=== PATIENT | male | born 1960 | race Caucasian/White ===

== ENCOUNTER 2016-12-24 09:34 | Inpatient (IN) | payer OTHER ==
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
[2016-12-24 09:51] LABS: % IMMATURE GRANULYOCYTES 1.4 % (0.0-1.1); ABSOLUTE IMMATURE GRANULOCYTES 0.17 10^3/uL (0.00-0.10); ADD DIFF? NO; ADD MORPH? NO; ADD SCAN? NO; ATYPICAL LYMPHOCYTE FLAG 0 (0-99); FRAGMENT RBC FLAG 0 (0-99); HEMATOCRIT 55.5 % (40.0-51.0); HEMOGLOBIN 18.8 g/dL (13.7-17.5); LEFT SHIFT FLG 10 (0-99); LIPEMIA HEMOLYSIS FLAG 90 (0-99); MEAN CELL HEMOGLOBIN 28.9 pg (27.9-34.1); MEAN CELL HEMOGLOBIN CONCENTR. 33.9 g/dL (32.4-36.7); MEAN CELL VOLUME 85.3 fL (81.5-99.8); MEAN PLATELET VOLUME 10.5 fL (8.7-11.7); PLATELET CLUMPS FLAG 0 (0-99); PLATELET COUNT 217 10^3/uL (150-400); RED BLOOD CELL COUNT 6.51 10^6/uL (4.40-6.38); RED CELL DISTRIBUTION WIDTH 15.9 % (11.5-15.2)
[2016-12-24 10:06] LABS: ANION GAP 17 mEq/L (8-16); CALCIUM 9.1 mg/dL (8.5-10.4); CARBON DIOXIDE 25 mEq/l (22-31); CHLORIDE 100 mEq/L (97-110); GLOMERULAR FILTRATION RATE > 60; GLUCOSE 130 mg/dL (70-100); SODIUM 142 mEq/L (134-144)
[2016-12-24] MEDS ORDERED: fentaNYL 100 MCG/2 ML INJ ONE (10:10)
[2016-12-24] MEDS ORDERED: fentaNYL 100 MCG/2 ML INJ IVP ONE ×2 (10:16→10:55)
[2016-12-24] MEDS ORDERED: MIDAZOLAM 2 MG/2 ML VIAL ONE (10:37)
[2016-12-24] MEDS ORDERED: MIDAZOLAM 2 MG/2 ML VIAL IVP ONE (10:55)
[2016-12-24] MEDS ORDERED: HYDROmorphONE/DILAUDID 1 MG/ML SYR IVP ONE (11:05)
[2016-12-24] MEDS ORDERED: HYDROmorphONE/DILAUDID 1 MG/ML SYR ONE (11:05)
[2016-12-24] MEDS ORDERED: LORazepam 2 MG/ML INJ IVP ONE (11:25)
[2016-12-24] MEDS ORDERED: LORazepam 2 MG/ML INJ ONE (11:27)
--- NOTE | 2016-12-24 11:51 | CPEKG ---
Heart Rate: 86 RR Interval: 698 P-R Interval: 176 QRSD Interval: 104 QT Interval: 388 QTC Interval: 464 P Pierpont: 69 QRS Pierpont: -77 T Wave Pierpont: 78 EKG Severity - ABNORMAL ECG - EKG Impression: SINUS RHYTHM EKG Impression: LEFT ANTERIOR FASCICULAR BLOCK Electronically Signed By: Symone Reese 24-Dec-2016 12:05:32
[2016-12-24] MEDS ORDERED: NALOXONE HCL 0.4 MG/ML INJ IVP PRN (12:36)
[2016-12-24] MEDS ORDERED: KETOROLAC 15 MG/1 ML SDV IVP PRN (12:38)
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
[2016-12-24] MEDS ORDERED: OXYCODONE/APAP 5/325 TAB PO PRN (12:42)
[2016-12-24] MEDS ORDERED: ONDANSETRON 4 MG/2 ML VIAL IVP PRN (12:42)
[2016-12-24] MEDS ORDERED: KETOROLAC 30 MG/1 ML SDV IVP ONE (12:45)
[2016-12-24] MEDS: HYDROmorphONE/DILAUDID 6 MG/30 ML PCA IV PRN (13:05)
[2016-12-24] MEDS ORDERED: PROTOCOL POTASSIUM 1 DOSE MISC PRN (14:24)
[2016-12-24] MEDS ORDERED: POTASSIUM CL 10 MEQ TAB PO ONE (15:27)
[2016-12-24 18:12] LABS: COLOR YELLOW; LEUKOCYTE ESTERASE,URINE NEGATIVE (NEGATIVE); NITRITE,URINE NEGATIVE (NEGATIVE)
[2016-12-24] MEDS: KETOROLAC 15 MG/1 ML SDV IVP SCH (18:25)
[2016-12-24 18:31] LABS: POTASSIUM 4.6 mEq/L (3.5-5.2)
[2016-12-24 18:35] LABS: MUCUS TRACE /lpf (NONE-1+)
[2016-12-24] MEDS: D5W 1/2 NS W/ 20 KCl/L 1,000 ML IV SCH (23:16)
[2016-12-25] MEDS: KETOROLAC 15 MG/1 ML SDV IVP SCH ×5 (00:18→23:06)
[2016-12-25 05:02] LABS: % IMMATURE GRANULYOCYTES 0.4 % (0.0-1.1); ABSOLUTE IMMATURE GRANULOCYTES 0.04 10^3/uL (0.00-0.10); ADD DIFF? NO; ADD MORPH? NO; ADD SCAN? NO; ATYPICAL LYMPHOCYTE FLAG 0 (0-99); FRAGMENT RBC FLAG 0 (0-99); HEMATOCRIT 47.5 % (40.0-51.0); LEFT SHIFT FLG 0 (0-99); LIPEMIA HEMOLYSIS FLAG 80 (0-99); MEAN CELL HEMOGLOBIN 29.3 pg (27.9-34.1); MEAN CELL HEMOGLOBIN CONCENTR. 33.7 g/dL (32.4-36.7); MEAN CELL VOLUME 86.8 fL (81.5-99.8); MEAN PLATELET VOLUME 10.3 fL (8.7-11.7); PLATELET CLUMPS FLAG 0 (0-99); PLATELET COUNT 151 10^3/uL (150-400); RED BLOOD CELL COUNT 5.47 10^6/uL (4.40-6.38); RED CELL DISTRIBUTION WIDTH 15.5 % (11.5-15.2)
[2016-12-25 05:20] LABS: ALANINE AMINOTRANSFERASE 59 IU/L (21-72); ALBUMIN 3.5 g/dL (3.5-5.0); ALKALINE PHOSPHATASE 77 IU/L (38-126); AMYLASE 57 IU/L (30-110); ANION GAP 9 mEq/L (8-16); ASPARTATE AMINOTRANSFERASE 136 IU/L (17-59); BILIRUBIN,TOTAL 1.7 mg/dL (0.1-1.4); BILIRUBIN-CONJUGATED 0.4 mg/dL (0.0-0.5); BILIRUBIN-UNCONJUGATED 1.3 mg/dL (0.0-1.1); CALCIUM 8.1 mg/dL (8.5-10.4); CARBON DIOXIDE 24 mEq/l (22-31); CHLORIDE 107 mEq/L (97-110); CREATININE 0.8 mg/dL (0.7-1.3); GLOMERULAR FILTRATION RATE > 60; GLUCOSE 114 mg/dL (70-100); POTASSIUM 4.4 mEq/L (3.5-5.2); SODIUM 140 mEq/L (134-144)
--- NOTE | 2016-12-25 06:03 | SOAPPROG ---
DASHAWN Progress Note Assessment/Plan: Assessment: Scapular body fracture Asked to see pt. by Dr. Viera Fracture likely operative but need scapula specific CT recon. Surgery next week pending improvement of other injuries Plan: 12/25/16 06:02 Objective: Vital Signs Temp Pulse Resp BP Pulse Ox 36.7 C 88 8 L 126/84 H 96 12/25/16 04:00 12/25/16 05:00 12/25/16 05:00 12/25/16 05:00 12/25/16 05:00 Laboratory Results 12/25/16 04:45 12/25/16 04:45 12/24/16 12/25/16 12/26/16 05:59 05:59 05:59 Intake Total 2600 Output Total 710 Balance 1890 ICD10 Worksheet Patient Problems: Problems Problem Status Onset Bilateral pneumothorax Acute Multiple rib fractures Acute Scapular fracture Acute
[2016-12-25] MEDS: HYDROmorphONE/DILAUDID 6 MG/30 ML PCA IV PRN ×3 (06:35→22:09)
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
[2016-12-25] MEDS: D5W 1/2 NS W/ 20 KCl/L 1,000 ML IV SCH (16:37)
[2016-12-25 17:52] LABS: POTASSIUM 4.9 mEq/L (3.5-5.2)
--- NOTE | 2016-12-25 20:02 | GOP ---
[f rep st] OPERATIVE REPORT DATE OF OPERATION: 12/24/2016 SURGEON: Nathanael Kemp MD PREOPERATIVE DIAGNOSIS: Left tension pneumothorax. POSTOPERATIVE DIAGNOSIS: Left tension pneumothorax. PROCEDURE PERFORMED: Left tube thoracostomy. FINDINGS: 1. The patient was found to have a tension pneumothorax on the left side. 1. The lung was well expanded after placement of chest tube. DESCRIPTION OF PROCEDURE: The patient received some IV sedation with Versed and fentanyl, prepped a nd draped in the usual sterile fashion. A short incision was made in the 6th intercostal space in t he anterior axillary line. Dissection extended down over the rib using 1% Xylocaine local infiltrat ion and the chest was entered at that point through the intercostals, releasing a large amount of ai r. A #28 chest tube was then inserted without difficulties and secured at the exit site with 0 silk suture. It was connected to a Pleur-evac drainage system. Chest x-ray revealed good expansion of the lung at that point. He tolerated the procedure quite well, there were no complications, and the wound was dressed. /[id number]/MODL
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
--- NOTE | 2016-12-25 21:57 | POSTOPPROG ---
Post Op Note Date of Operation: 12/25/16 Surgeon: Nathanael Kemp Anesthesia: IV Sedation Pre-op Diagnosis: left pneumothorax Post-op Diagnosis: left tension pneumothorax Procedure: left tube thorascopy Findings: tension pneumo/ well expanded Inf/Abcess present in the surg proc area at time of surgery?: No Depth: Organ Space EBL: Minimal Complications: 0 Drains: Constavac
[2016-12-26 05:09] LABS: POTASSIUM 4.6 mEq/L (3.5-5.2)
[2016-12-26] MEDS: KETOROLAC 15 MG/1 ML SDV IVP SCH ×4 (05:57→23:19)
[2016-12-26] MEDS: D5W 1/2 NS W/ 20 KCl/L 1,000 ML IV SCH ×3 (07:10→21:38)
[2016-12-26] MEDS ORDERED: POLYETHYLENE GLYCOL 3350 17 GM PKT PO PRN (08:26)
[2016-12-26] MEDS ORDERED: BISACODYL 10 MG SUPP PR PRN (08:26)
--- NOTE | 2016-12-26 08:48 | SOAPPROG ---
DASHAWN Progress Note Assessment/Plan: Assessment: Scapular body fracture Asked to see pt. by Dr. Viera Fracture likely operative but need scapula specific CT recon. Surgery next week pending improvement of other injuries Plan: 12/25/16 06:02 12/26/16 08:46 R shoulder pain RUE distal NV grossly intact CT recons completed which show enough displacement that ORIF warranted. Plan ORIF R Scapula on Wednesday Objective: Vital Signs Temp Pulse Resp BP Pulse Ox 98.1 C H 73 16 134/86 H 95 12/26/16 08:00 12/26/16 08:00 12/26/16 08:00 12/26/16 08:00 12/26/16 08:00 Laboratory Results 12/25/16 04:45 12/26/16 04:14 12/25/16 12/26/16 12/27/16 05:59 05:59 05:59 Intake Total 2600 900 Output Total 710 755 Balance 1890 145 ICD10 Worksheet Patient Problems: Problems Problem Status Onset Bilateral pneumothorax Acute Multiple rib fractures Acute Scapular fracture Acute
[2016-12-26] MEDS: SENNOSIDES/DOCUSATE SODIUM TAB PO SCH ×2 (09:42→21:37)
[2016-12-26] MEDS: DIAZEPAM 5 MG TAB PO PRN ×2 (09:42→17:24)
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
[2016-12-26] MEDS: oxyCODONE IR 5 MG TAB PO PRN ×2 (11:43→17:52)
[2016-12-26] MEDS: HYDROmorphONE/DILAUDID 6 MG/30 ML PCA IV PRN ×2 (12:02→23:19)
[2016-12-27] MEDS: buPROPion XL 150 MG TAB PO SCH (09:20)
[2016-12-27] MEDS: SERTRALINE HCL 100 MG TAB PO SCH (09:21)
[2016-12-27] MEDS: SENNOSIDES/DOCUSATE SODIUM TAB PO SCH ×2 (09:21→19:44)
[2016-12-27] MEDS: KETOROLAC 15 MG/1 ML SDV IVP SCH ×4 (09:22→23:04)
[2016-12-27] MEDS: MAGNESIUM HYDROXIDE 30 ML UDCUP PO PRN (09:28)
[2016-12-27] MEDS: HYDROmorphONE/DILAUDID 6 MG/30 ML PCA IV PRN (10:37)
[2016-12-27] MEDS: oxyCODONE IR 5 MG TAB PO PRN ×4 (10:44→23:03)
--- NOTE | 2016-12-27 14:28 | SOAPPROG ---
SOAP Progress Note Assessment/Plan: Assessment: Plan: Subjective: vss, af cxr today shows small marcia pneumothoraces. lungs clear abd soft. awaiting orif scapula wednesday. no acute issues. Objective: Vital Signs Temp Pulse Resp BP Pulse Ox 36.6 C 100 18 137/108 H 95 12/27/16 12:00 12/27/16 12:00 12/27/16 12:00 12/27/16 12:00 12/27/16 12:00 Laboratory Results 12/25/16 04:45 12/26/16 04:14 12/26/16 12/27/16 12/28/16 05:59 05:59 05:59 Intake Total 900 1600 Output Total 755 20 Balance 145 1580 ICD10 Worksheet Patient Problems: Problems Problem Status Onset Bilateral pneumothorax Acute Multiple rib fractures Acute Scapular fracture Acute
[2016-12-27] MEDS: DIAZEPAM 5 MG TAB PO PRN ×2 (17:22→23:03)
[2016-12-28] MEDS: HYDROCODONE/APAP 10/325 TAB PO PRN ×3 (02:45→16:42)
[2016-12-28] MEDS: HYDROmorphONE/DILAUDID 1 MG/ML SYR IVP PRN ×2 (02:45→05:01)
[2016-12-28] MEDS: oxyCODONE IR 5 MG TAB PO PRN ×3 (03:27→21:44)
[2016-12-28] MEDS: KETOROLAC 15 MG/1 ML SDV IVP SCH ×3 (05:01→17:34)
[2016-12-28] MEDS: DIAZEPAM 5 MG TAB PO PRN ×2 (05:01→21:44)
--- NOTE | 2016-12-28 06:07 | SOAPPROG ---
DASHAWN Progress Note Assessment/Plan: Assessment: Scapular body fracture Asked to see pt. by Dr. Viera Fracture likely operative but need scapula specific CT recon. Surgery next week pending improvement of other injuries Plan: 12/25/16 06:02 12/26/16 08:46 R shoulder pain RUE distal NV grossly intact CT recons completed which show enough displacement that ORIF warranted. Plan ORIF R Scapula on Wednesday12/28/16 06:06 Persistent R shoulder pain with difficulty moving arm NV unchanged ORIF tomorrow afternoon Objective: Vital Signs Temp Pulse Resp BP Pulse Ox 37.1 C 88 19 139/86 H 94 12/28/16 03:19 12/28/16 03:19 12/28/16 03:19 12/28/16 03:19 12/28/16 03:19 Laboratory Results 12/25/16 04:45 12/26/16 04:14 12/27/16 12/28/16 12/29/16 05:59 05:59 05:59 Intake Total 1600 1500 Output Total 20 Balance 1580 1500 ICD10 Worksheet Patient Problems: Problems Problem Status Onset Bilateral pneumothorax Acute Multiple rib fractures Acute Scapular fracture Acute
[2016-12-28] MEDS: SENNOSIDES/DOCUSATE SODIUM TAB PO SCH ×2 (09:08→21:44)
[2016-12-28] MEDS: SERTRALINE HCL 100 MG TAB PO SCH (09:08)
[2016-12-28] MEDS: buPROPion XL 150 MG TAB PO SCH (09:09)
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
[2016-12-28] MEDS: GABAPENTIN 100 MG CAP PO SCH (11:52)
[2016-12-28] MEDS: MAGNESIUM HYDROXIDE 30 ML UDCUP PO PRN (12:41)
[2016-12-29] MEDS: HYDROCODONE/APAP 10/325 TAB PO PRN ×3 (00:02→23:39)
[2016-12-29] MEDS: KETOROLAC 15 MG/1 ML SDV IVP SCH ×3 (00:03→12:37)
[2016-12-29] MEDS: oxyCODONE IR 5 MG TAB PO PRN ×2 (01:46→07:56)
[2016-12-29] MEDS: HYDROmorphONE/DILAUDID 1 MG/ML SYR IVP PRN ×3 (01:55→21:14)
[2016-12-29] MEDS: DIAZEPAM 5 MG TAB PO PRN ×2 (03:16→21:19)
[2016-12-29] MEDS: buPROPion XL 150 MG TAB PO SCH (07:58)
[2016-12-29] MEDS: SERTRALINE HCL 100 MG TAB PO SCH (07:58)
[2016-12-29] MEDS: GABAPENTIN 100 MG CAP PO SCH (07:58)
[2016-12-29] MEDS: SENNOSIDES/DOCUSATE SODIUM TAB PO SCH ×2 (07:58→21:19)
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
[2016-12-29] MEDS: HYDROmorphONE/DILAUDID 6 MG/30 ML PCA IV PRN (11:52)
[2016-12-29] MEDS: D5W 1/2 NS W/ 20 KCl/L 1,000 ML IV SCH (11:55)
[2016-12-29] MEDS ORDERED: fentaNYL 100 MCG/2 ML INJ ONE ×5 (14:32→19:54)
[2016-12-29] MEDS ORDERED: ceFAZolin 2 GM/DEXTROSE 100 ML IV ONE (15:00)
[2016-12-29] MEDS ORDERED: MIDAZOLAM 2 MG/2 ML VIAL ONE (15:03)
[2016-12-29] MEDS ORDERED: diphenhydrAMINE 25 MG CAP PO PRN (15:06)
[2016-12-29] MEDS ORDERED: morphINE PCA 30 MG/30 ML PCA IV PRN (15:06)
--- NOTE | 2016-12-29 15:06 | POSTOPPROG ---
Post Op Note Date of Operation: 12/29/16 Surgeon: Aryan Lloyd Ppa Teacher: Joanie Barrett PA-C Anesthesia: GET(General Endotracheal) Pre-op Diagnosis: R Scapula Fx Post-op Diagnosis: Same Procedure: ORIF R Scapula Fx Inf/Abcess present in the surg proc area at time of surgery?: No EBL: 50-100
[2016-12-29] MEDS ORDERED: PROPOFOL 200 MG/20 ML VIAL ONE (15:15)
[2016-12-29] MEDS ORDERED: BUPIVACAINE 0.5% 30 ML SDV ONE (15:31)
[2016-12-29] MEDS ORDERED: PROPOFOL/EMULSION 500 MG/50 ML BOTTLE IV ONE ×2 (15:49→17:04)
[2016-12-29] MEDS ORDERED: HYDROmorphONE/DILAUDID 2 MG/ML INJ ONE (15:52)
[2016-12-29] MEDS ORDERED: DESFLURANE 240 ML BOTTLE IH ONE (16:07)
[2016-12-29] MEDS ORDERED: LABETALOL HCL 5 MG/ML 20 ML MDV ONE (16:08)
[2016-12-29] MEDS ORDERED: DEXAMETHASONE 4 MG/ML VIAL ONE (16:22)
[2016-12-29] MEDS ORDERED: ONDANSETRON 4 MG/2 ML VIAL ONE (17:56)
[2016-12-29] MEDS ORDERED: SUGAMMADEX SODIUM 200 MG/2 ML VIAL IVP ONE (18:04)
[2016-12-29] MEDS ORDERED: epHEDrine SULFATE 10 MG/ML SYR ONE (19:03)
[2016-12-29] MEDS ORDERED: HYDROmorphONE/DILAUDID 1 MG/ML SYR ONE ×2 (19:13→19:54)
[2016-12-29] MEDS ORDERED: KETOROLAC 15 MG/1 ML SDV ONE (19:32)
[2016-12-29] MEDS ORDERED: oxyCODONE IR 5 MG TAB ONE (19:33)
[2016-12-29] MEDS: ceFAZolin 2 GM/DEXTROSE 100 ML IV SCH (21:23)
[2016-12-30] MEDS: oxyCODONE IR 5 MG TAB PO PRN ×3 (01:46→15:30)
[2016-12-30] MEDS: DIAZEPAM 5 MG TAB PO PRN ×2 (04:10→12:43)
[2016-12-30] MEDS: ceFAZolin 2 GM/DEXTROSE 100 ML IV SCH ×2 (05:36→12:43)
[2016-12-30] MEDS: HYDROCODONE/APAP 10/325 TAB PO PRN ×2 (05:37→12:42)
--- NOTE | 2016-12-30 05:47 | SOAPPROG ---
DASHAWN Progress Note Assessment/Plan: Assessment: Scapular body fracture Asked to see pt. by Dr. Viera Fracture likely operative but need scapula specific CT recon. Surgery next week pending improvement of other injuries Plan: 12/25/16 06:02 12/26/16 08:46 R shoulder pain RUE distal NV grossly intact CT recons completed which show enough displacement that ORIF warranted. Plan ORIF R Scapula on Wednesday12/28/16 06:06 Persistent R shoulder pain with difficulty moving arm NV unchanged ORIF tomorrow afternoon 12/30/16 05:44 S/P ORIF R clavicle fx. Anticipated amount of post op pain Scotty po R shoulder dressing intact Rad/med/ulna nn intact to motor /sensory exam OOB wearing sling OK for D/C from ortho standpoint when cleared by trauma surg F/U [facility] 01/11/17. call for appt Objective: Vital Signs Temp Pulse Resp BP Pulse Ox 37.1 C 91 15 115/75 92 12/30/16 04:00 12/30/16 04:00 12/30/16 04:00 12/30/16 04:00 12/30/16 04:00 Laboratory Results 12/25/16 04:45 12/26/16 04:14 12/28/16 12/29/16 12/30/16 05:59 05:59 05:59 Intake Total 1750 3205 Output Total 500 2900 Balance 1750 -500 305 ICD10 Worksheet Patient Problems: Problems Problem Status Onset Bilateral pneumothorax Acute Multiple rib fractures Acute Scapular fracture Acute
[2016-12-30 07:47] VITALS: PULSE 92; RESP 16; TEMP 98.6; O2SAT 95
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
[2016-12-30] MEDS: SERTRALINE HCL 100 MG TAB PO SCH (10:06)
[2016-12-30] MEDS: buPROPion XL 150 MG TAB PO SCH (10:06)
[2016-12-30] MEDS: GABAPENTIN 100 MG CAP PO SCH (10:07)
[2016-12-30] MEDS: SENNOSIDES/DOCUSATE SODIUM TAB PO SCH (10:07)
[2016-12-30 12:51] VITALS: BP 142/89
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
== END 2016-12-30 17:50 | disposition home or self-care (01) | DRG 516 ==
LOC: EDUNIT# → F2N 11:38 → F3N 12-25 16:26
PROVIDERS: ADMIT Surgery; ATTEND Surgery
PROC: 0W9B30Z Drainage of Left Pleural Cavity with Drainage Device, Percutaneous Approach (ICD-10-PCS; principal; 2016-12-29 14:15)
PROC: 0PS504Z Reposition Right Scapula with Internal Fixation Device, Open Approach (ICD-10-PCS; principal; 2016-12-29 14:15)
DX: S42.111A Displaced fracture of body of scapula, right shoulder, initial encounter for closed fracture (principal); S27.0XXA Traumatic pneumothorax, initial encounter; S22.43XA Multiple fractures of ribs, bilateral, initial encounter for closed fracture; M51.36 Other intervertebral disc degeneration, lumbar region; Z98.1 Arthrodesis status
CPT/HCPCS: 82947-QW; 96374; 97116-GP; 97161-GP; 97165-GO; 97168-GO; 97530-GP; 97535-GO; A4565; C1713; J0690; J1100; J1170; J1885; J2060; J2250; J2405; J2704; J3010; J3490

== ENCOUNTER → 2017-06-13 | Outpatient (CLI) | payer OTHER | LOC: FCPNEURO 23:45 | PROVIDERS: ATTEND Student in an Organized Health Care Education/Training Program | DX: G47.33 Obstructive sleep apnea (adult) (pediatric) (principal); G47.31 Primary central sleep apnea ==

== ENCOUNTER 2018-01-04 10:07 | Observation (INO) | payer OTHER ==
[2018-01-04 12:34] LABS: PLATELET COUNT 209 10^3/uL (150-400)
[2018-01-04] MEDS ORDERED: NS 1,000 ML IV ONE (12:36)
[2018-01-04] MEDS ORDERED: DIAZEPAM 5 MG/ML 1 ML SYR IVP ONE (12:36)
--- NOTE | 2018-01-04 13:08 | EDPHY ---
H & P Smoking Status: Never smoked Time Seen by Provider: 01/04/18 12:22 HPI/ROS: CHIEF COMPLAINT: Akathisia HISTORY OF PRESENT ILLNESS: 57-year-old male presents to the emergency department with concerns of akathisia. The patient states that he had similar symptoms in April of 2017 which resolved on its own. Patient was recently treated with penicillin for strep pharyngitis a 1 month ago. He states that he had recurring symptoms of akathisia which she states is now worse. He saw his primary care provider last week and was told that his iron level was low. His primary care provider thought that maybe that was why he felt so restless and anxious. They did also explain to him that this could be as a result of taking the penicillin and this could be an adverse reaction. They encouraged him to take Benadryl twice daily. He took the Benadryl for 2 days and initially was feeling better but then his symptoms came back and now he feels that there much worse. He denies pain in his chest or difficulty breathing. Denies abdominal pain. Denies neck or back pain. No reported trauma. He has severe insomnia and has not slept for several days. REVIEW OF SYSTEMS: Constitutional: No fever, no chills. Eyes: No double or blurry vision. ENT: No sore throat. Respiratory: No cough, no shortness of breath. Cardiac: No chest pain. Gastrointestinal: No abdominal pain, vomiting or diarrhea. Genitourinary: No dysuria. Musculoskeletal: No neck or back pain. Skin: No rashes. Neurological: No headache. (Miguel Ángel Ramirez) Past Medical/Surgical History: Depression, celiac disease, autoimmune disease (Miguel Ángel Ramirez) Social History: (Miguel Ángel Ramirez) Physical Exam: General Appearance: Alert, anxious. at bedside. Eyes: Pupils equal and round. Extraocular motions are all intact. ENT: Mouth: Mucous membranes moist. Respiratory: No wheezing, rhonchi, or rales, lungs are clear to auscultation. Cardiovascular: Regular rate and rhythm. Gastrointestinal: Abdomen is soft and nontender, no masses, no rebound or guarding, bowel sounds normal. Neurological: Alert and oriented x 3, cranial nerves II through XII grossly intact Skin: Warm and dry, no rashes. Musculoskeletal: Nontender to palpate along the cervical, thoracic or lumbar spine. Neck is supple. Extremities: Full range of motion and no peripheral edema. Psychiatric: Patient is oriented X 3, there is no agitation. (Miguel Ángel Ramirez) Constitutional: Initial Vital Signs Temperature (C) 36.5 C 01/04/18 10:41 Heart Rate 87 01/04/18 10:41 Blood Pressure 146/102 H 01/04/18 10:41 O2 Sat (%) 97 01/04/18 10:41 O2 Delivery Mode Room Air Allergies/Adverse Reactions: gluten Allergy (Verified 12/26/16 13:53) Home Medications: Medication Instructions Recorded Methadone HCl [Methadone HCl 10 mg 10 mg PO TID 02/15/10 (*)] Sertraline HCl [Zoloft 100mg (*)] 100 mg PO DAILY 02/15/10 buPROPion XL [Wellbutrin 150mg XL] 150 mg PO DAILY 12/24/16 Diazepam [Valium 5 MG (*)] 10 mg PO Q6HRS PRN #10 tab 12/30/16 Gabapentin [Neurontin 100 MG (*)] 100 mg PO DAILY #10 cap 12/30/16 oxyCODONE CR [Oxycontin] 20 mg PO BID #5 tab 12/30/16 oxyCODONE IR [Oxycodone Ir (*)] 5 - 10 mg PO Q4HRS PRN #20 tab 12/30/16 Medical Decision Making - Diagnostics Imaging Results: Imaging Impressions Extremity Venous Study 01/04/18 15:02 Impression: There is no sonographic evidence of deep or superficial vein thrombosis in the right lower extremity. Findings were discussed with MIGUEL ÁNGEL RAMIREZ PA-C at 15:48, on 01/04/2018. ED Course/Re-evaluation: 57-year-old male presents with symptoms of akathisia. Patient was given 5 mg of IV Valium. CBC and chemistries are pending. Laboratory studies are unremarkable. He the 5 mg of Valium initially the patient was stating that he was feeling worse however when I went back to recheck the patient he was sleeping. Symptoms returned about approximately 1 hr after infusing IV Valium. The case was discussed with Dr. Melissa Trinidad, secondary supervising physician, who also evaluated the patient. She recommended consulting with Neurology. I spoke with Dr. Meadows, on-call for neurologist, who felt that this patient could be seen as an outpatient for movement disorder. The does not feel comfortable taking him home. He has had such severe insomnia that he is not able to function at home. The patient will be admitted to Dr. Chucky Decker, hospitalist to the medical-surgical floor. Patient was given 1 mg of IV Ativan as well. (Miguel Ángel Ramirez) Differential Diagnosis: Including but not limited to medication reaction, dehydration, rheumatic fever, electrolyte abnormality (Miguel Ángel Ramirez) Other Provider: I evaluated and participated in the management of the patient. I also evaluated the patient independently. My co-signature indicates that I have reviewed this chart and I agree with the findings and plan of care as documented. My personal H&P findings include: 57-year-old male with history of some anxiety and depression as well as chronic back pain and presents with "jittery feeling", "uncontrolled movements", "unable to sleep". Patient reports that 6 weeks ago he was diagnosed with strep on a culture. He was given penicillin. Reports some abdominal discomfort with the penicillin and felt like it was making him sick. He became somewhat anxious. He developed a rash. He was seen by Dr. Diallo about 4 weeks ago further rash with concerns of a penicillin allergy. At that time he did feel restless but not nearly as significant as today. He was prescribed Benadryl for the presumed penicillin allergy. Patient feels that the Benadryl may have made his symptoms worse. Since that time he has had progressive worsening of his symptoms with insomnia, and increase in the jittery-ness and uncontrolled movement. No seizure activity reported. Unclear if the movement stopping while the patient is sleeping; his reports that he seems to jerk himself awake. On physical exam, the patient appears anxious. He is talking to me with his eyes closed. He has ongoing jitters and tremors of his legs and arms. He is restless in the bed. Cranial nerves 2-12 are intact. Motor strength is equal throughout. No fasciculations of the tongue. Patient received Valium and slept for a brief period time in the emergency department. His course was discussed with Neurology and felt he should be seen as an outpatient. Patient feels unsafe to go home on the is concerned about her ability to continue to care for him at home. He was admitted to the medicine service. Differential for the patient's movement disorder includes tardive dyskinesia, chorea-form movements related to acute rheumatic fever, anxiety, dystonic reaction to Benadryl or penicillins. (Melissa Trinidad) - Data Points Laboratory Results: Laboratory Results 01/04/18 11:35 01/04/18 11:35 01/04/18 01/04/18 01/04/18 11:35 11:35 11:35 WBC 9.52 10^3/uL H 10^3/uL (3.80-9.50) RBC 5.87 10^6/uL 10^6/uL (4.40-6.38) Hgb 17.2 g/dL g/dL (13.7-17.5) Hct 52.0 % H % (40.0-51.0) MCV 88.6 fL fL (81.5-99.8) MCH 29.3 pg pg (27.9-34.1) MCHC 33.1 g/dL g/dL (32.4-36.7) RDW 13.2 % % (11.5-15.2) Plt Count 209 10^3/uL 10^3/uL (150-400) MPV 10.2 fL fL (8.7-11.7) Neut % (Auto) 79.3 % H % (39.3-74.2) Lymph % (Auto) 13.0 % L % (15.0-45.0) [place] % (Auto) 5.7 % % (4.5-13.0) Eos % (Auto) 1.3 % % (0.6-7.6) Baso % (Auto) 0.4 % % (0.3-1.7) Nucleat RBC Rel Count 0.0 % % (0.0-0.2) Absolute Neuts (auto) 7.55 10^3/uL H 10^3/uL (1.70-6.50) Absolute Lymphs (auto) 1.24 10^3/uL 10^3/uL (1.00-3.00) Absolute Monos (auto) 0.54 10^3/uL 10^3/uL (0.30-0.80) Absolute Eos (auto) 0.12 10^3/uL 10^3/uL (0.03-0.40) Absolute Basos (auto) 0.04 10^3/uL 10^3/uL (0.02-0.10) Absolute Nucleated RBC 0.00 10^3/uL 10^3/uL (0-0.01) Immature Gran % 0.3 % % (0.0-1.1) Immature Gran # 0.03 10^3/uL 10^3/uL (0.00-0.10) Sodium 144 mEq/L mEq/L (135-145) Potassium 4.3 mEq/L mEq/L (3.3-5.0) Chloride 105 mEq/L mEq/L (97-110) Carbon Dioxide 28 mEq/l mEq/l (22-31) Anion Gap 11 mEq/L mEq/L (8-16) BUN 9 mg/dL mg/dL (7-23) Creatinine 0.8 mg/dL mg/dL (0.7-1.3) Estimated GFR > 60 Glucose 93 mg/dL mg/dL (70-100) Calcium 8.6 mg/dL mg/dL (8.5-10.4) Creatine Kinase 98 IU/L IU/L (0-224) Medications Given: Discontinued Medications Diazepam (Valium) 5 mg IVP EDNOW ONE Stop: 01/04/18 12:37 Last Admin: 01/04/18 12:59 Dose: 5 mg Sodium Chloride (Ns) 1,000 mls @ 0 mls/hr IV ONCE ONE PRN Reason: Wide Open Stop: 01/04/18 12:37 Last Admin: 01/04/18 13:00 Dose: 1,000 mls Lorazepam (Ativan Injection) 1 mg IVP EDNOW ONE Stop: 01/04/18 15:14 Last Admin: 01/04/18 15:20 Dose: 1 mg Departure - Departure Disposition: [facility] Acute Clinical Impression: Akathisia Condition: Fair
[2018-01-04] MEDS ORDERED: LORazepam 2 MG/ML INJ IVP ONE (15:13)
--- NOTE | 2018-01-04 16:09 | CPEKG ---
Heart Rate: 76 RR Interval: 789 P-R Interval: 148 QRSD Interval: 94 QT Interval: 400 QTC Interval: 450 P Brady: 78 QRS Brady: -57 T Wave Brady: 50 EKG Severity - ABNORMAL ECG - EKG Impression: SINUS RHYTHM EKG Impression: LAD, CONSIDER LEFT ANTERIOR FASCICULAR BLOCK Electronically Signed By: Luis Arteaga 05-Jan-2018 11:51:40
[2018-01-04] MEDS ORDERED: ACETAMINOPHEN 325 MG TAB PO PRN (16:48)
[2018-01-04] MEDS ORDERED: ONDANSETRON 4 MG/2 ML VIAL IVP PRN (16:48)
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
[2018-01-04] MEDS: LORazepam 1 MG TAB PO PRN (20:09)
[2018-01-04] MEDS: CARBAMAZEPINE 100 MG CHEWABLE TAB PO SCH (20:09)
[2018-01-04] MEDS ORDERED: BACLOFEN 10 MG TAB PO PRN (21:13)
[2018-01-04] MEDS ORDERED: oxyCODONE IR 5 MG TAB PO PRN (21:13)
[2018-01-04] MEDS ORDERED: MELATONIN 3 MG TAB PO SCH (22:45)
[2018-01-05] MEDS: LORazepam 1 MG TAB PO PRN ×2 (03:15→12:59)
[2018-01-05] MEDS ORDERED: ENOXAPARIN 40 MG/0.4 ML SYR SC SCH (09:00)
[2018-01-05] MEDS ORDERED: SERTRALINE HCL 100 MG TAB PO SCH (09:00)
[2018-01-05] MEDS ORDERED: METHADONE HCL 10 MG TAB PO SCH (09:00)
[2018-01-05] MEDS ORDERED: buPROPion XL 150 MG TAB PO SCH (09:00)
--- NOTE | 2018-01-05 10:16 | NEUROPROG ---
Assessment: HOSPITAL NEUROLOGY CONSULT REQUESTING: Chucky Decker MD REASON: abnormal movements HPI: 57 year old man with a history of chronic pain, depression, Celiac, IgG deficiency reported to our ED with worsening abnormal movements. Patient states for 1.5 years he's been experiencing worsening involuntary movements. He states he will have episodes of shaking, jerking or both of the limbs and torso. They last minutes and then stop. They can involve any combination of the extremities and torso. He states they wake him out of sleep. He states they are involuntary. He cannot suppress them. He thinks stress may provoke some of the episodes, but not always. They went away for months then re-emerged recently. He had a streptococcal pharyngitis infection a month ago and was started on penicillin - he states the first dose made the movements profoundly worse. Since then they have been so profound he cannot function. He tried diphenhydramine but this didn't help. He was given a dose of baclofen and a dose of carbamazepine yesterday evening, but he still had movements throughout the night. He came to the ED because of this. He was given lorazepam and diazepam in the ED, but this worsened his movements. This morning on waking he has no movements. ROS: As per the HPI, otherwise a complete 12 point ROS was performed and is negative ALLERGIES AND MEDS: As recorded in the EMR - reviewed and reconciled PFSH: As per the intake H&P by Dr. Decker from from yesterday EXAM: VS reviewed in EMR GEN: WDWN laying in NAD HEENT: NCAT, sclera anicteric, conjunctiva not injected, MMM, oropharynx clear, no scalp tenderness NECK: supple, nontender, no meningismus CV: RRR s1 s2 wo m/r/c/g. Carotid pulses 2+ wo bruit NEURO: MS: awake, alert, oriented to all spheres. Speech nondysarthric. No language disturbance. Follows commands. Attends to both sides. Recent/remote memory grossly intact. Mood euthymic. Good fund of knowledge. CN: pupils 4mm round and reactive. Unable to visualize fundi. VFF. Primary gaze centered. Full ocular motility. Facial sensation preserved. Face symmetric. Hearing grossly intact to finger rub. Palatoglossal movements intact. Shoulder shrug and head turn strong. MOTOR: normal bulk/tone. No adventitial movements. Full power throughout. SENSORY: intact to all modalities throughout. No extinction. COORD: no ataxia FN/HS. Isbael preserved. REFLEX: plantars down. No clonus. DTRS trace. GAIT: deferred to PT safety eval DATA REVIEW: Labs reviewed in EMR PERSONALLY INTERPRETED RESULTS AND DATA: Nil IMPRESSION AND RECOMMENDATIONS: // HYPERKINETIC MOVEMENTS // CONVERSION DISORDER Patient with episodic start-stop movements of varying semiology and location. 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 Possibility of a post-streptococcal movement disorder was raised, but this would be highly unusual in an adult, and the described movements are not choreiform. Would not pursue any further neurologic investigation in hospital. Advise capturing movement on smart-phone video if they recur, and he can follow up in our clinic for video review (or if they are clinically present). Otherwise would recommend evaluation by psychiatry/psychology for mood optimization and intensive cognitive behavioral therapy. Objective: Vital Signs Temp Pulse Resp BP Pulse Ox 36.6 C 80 16 140/87 H 94 01/05/18 08:00 01/05/18 08:00 01/05/18 08:00 01/05/18 08:00 01/05/18 08:00 01/04/18 01/05/18 01/06/18 05:59 05:59 05:59 Intake Total 1750 Balance 1750 Allergies/Adverse Reactions: gluten Allergy (Verified 12/26/16 13:53)
[2018-01-05] MEDS: CARBAMAZEPINE 100 MG CHEWABLE TAB PO SCH (10:44)
--- NOTE | 2018-01-05 12:05 | GDS ---
[f rep st] DISCHARGE SUMMARY DISCHARGE DIAGNOSES: 1. Insomnia. 2. Hyperkinetic movements. 3. Possible conversion disorder. STUDIES AND PROCEDURES DONE: 1. Doppler of the lower extremity. 2. Echocardiogram. CONSULTATIONS: 1. Neurology. 2. Infectious Disease. PHYSICAL EXAM: GENERAL: The patient is alert. VITAL SIGNS: Afebrile at 36.6 , pulse is 80, respiratory rate 16, blood pressure is 140/87. He is saturating 94% on room air. I have seen evaluated the patient on the day of discharge. HOSPITAL COURSE: The patient is a 57-year-old male who presented to the emergency room with complaints of worsening abnormal movements. He was admitted to the hospital and evaluated. He did receive a consultation from Neurology as well as Infectious Disease, Dr. Jose Caro. I have reviewed with both Dr. Meadows as well as Dr. Jose Caro the patient's diagnosis and it is felt that he has hyperkinetic movements with potential conversion disorder. I have expressed this diagnosis to the patient and educated him. He will be discharged home to follow up in the outpatient setting with his primary care physician, Dr. Joann Clark. I have contacted Dr. Clark's office and made recommendations for outpatient followup. The patient is in agreement with this plan and will follow up with Dr. Clark as soon as possible. He can also follow up in the neurology clinic if his symptoms are not improving. PENDING STUDIES: Include reading of echocardiogram. DISCHARGE MEDICATIONS: Please refer to EMR form. I have discontinued the patient's oxycodone IR as well as his Concerta. Again, followup will be with Dr. Joann Clark as soon as possible. Dictating for Dr Lucille Keita /[id number]/MODL MTDD
[2018-01-05 12:50] VITALS: BP 166/106
[2018-01-05] MEDS ORDERED: CLOTRIMAZOLE 10 MG TROCHE PO SCH (14:00)
--- NOTE | 2018-01-05 16:56 | ECHO ---
[email or web address] [address] [address] Main: [phone] Fax: Transthoracic Echocardiogram Name: TAWANNA MAIN MR#: [id number] Study Date: 01/05/2018 Study Time: 11:54 AM Date of : 1960 Age: 57 year(s) Height: 190.5 cm (75 in.) Weight: 90.72 kg (200 lb.) BSA: 2.19 m2 Gender: Male Examination: Echo Indication: INFECTION Image Quality: Adequate Contrast: Requested by: Kimberly Zendejas BP: 140 mmHg/87 mmHg Heart Rate: Rhythm: Indication: INFECTION Procedure Staff Rn Mds Coordinator: Claudia Montague [facility] Reading Physician: Madie Hyman MD Requesting Provider: Conclusions: Normal size left ventricle. Mild concentric LV hypertrophy. Normal global systolic LV function. The ejection fraction is visually estimated to be 55 %. No regional wall motion abnormality. Normal size right ventricle. Normal RV function. Mild mitral valve regurgitation is present. There is bileaflet mitral valve prolapse. The pulmonary artery pressure is normal. There is no previous echocardiogram for comparison. Measurements: Chambers Valvular Assessment AV/MV Valvular Assessment TV/PV Normal Normal Normal Name Value Range Name Value Range Name Value Range Ao Valerie (2D): 3.8 cm (1.4 cm-2.6 AV Vmax: 1.00 m/s (1 m/s-1.7 TR Vmax: 2.40 mm/s ( - ) cm) m/s) TR PGmax: 23 mmHg ( - ) IVSd (2D): 1.1 cm (0.6 cm-1.1 AV meanP mmHg ( - ) syst. PAP: 28 mmHg ( - ) cm) VIKASH (VTI): 5.2 cm ( - ) PV Vmax: 0.95 m/s (0.6 m/s-0.9 LVDd (2D): 5.0 cm (4.2 cm-5.9 MV E Vmax: 0.49 m/s ( - ) m/s) cm) MV A Vmax: 0.58 m/s ( - ) PV PGmax: 4 mmHg ( - ) LVDs (2D): 3.3 cm (2.1 cm-4 MV E/A: 0.84 ( - ) cm) MV PHT: 0.098 s ( - ) LVPWd (2D): 1.1 cm (0.6 cm-1 cm) MVA (PHT): 2.2 s ( - ) LVOTd 2.5 cm 2.5 cm mm LVEF (BP): 49 % (>=55 %) Visual EF: 55 % RVDd(2D): 3.4 cm (1.9 cm-3.8 cmmm) Patient: TAWANNA MAIN Study Date: 01/05/2018 Page 1 of 2 11:54 AM Continued Measurements: Chambers Valvular Assessment AV/MV Valvular Assessment TV/PV Name Value Name Value Name Value LADs: 3.6 cm MV DecTime: 261 m/s CVP (est.): 5 mmHg LADs Lon.3 cm MV E' Septal: 0.08 m/s LA Area: 20.1 cm2 MV E/E' Septal: 6.60 LA Volume: 66 ml MV E/E' Lateral: 5.80 LA Volume Index: 30.1 ml/m2 RA Area: 22.0 cm2 Additional Vessels Name Value Ao Ascendin.5 cm Inferior Vena Cava: 1.0 cm Findings: Left Ventricle: Normal size left ventricle. Mild concentric LV hypertrophy. Normal global systolic LV function. The ejection fraction is visually estimated to be 55 %. No regional wall motion abnormality. Unable to assess diastolic dysfunction. Right Ventricle: Normal size right ventricle. Normal RV function. Left Atrium: The left atrium is normal in size. Right Atrium: The right atrium is normal in size. Mitral Valve: Mild mitral valve regurgitation is present.No mitral stenosis is present. There is bileaflet mitral valve prolapse. Aortic Valve: The aortic valve is tri-leaflet. There is no significant aortic valve regurgitation. No aortic valve stenosis is present. Tricuspid Valve: The tricuspid valve is normal in appearance and function. The pulmonary artery pressure is normal. Pulmonic Valve: The pulmonic valve is normal in appearance and function. There is no pulmonic regurgitation seen. Aorta: The aorta is normal. Normal size aortic root measuring 3.8 cm. Normal size ascending aorta measuring 3.5 cm. IVC: The IVC is normal sized. Pericardium: No pericardial effusion. No pleural effusion. (No Signature Object) Patient: TAWANNA MAIN Study Date: 01/05/2018 Page 2 of 2 11:54 AM [id number]
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
== END 2018-01-05 13:22 | disposition home or self-care (01) ==
LOC: F3E 16:47
PROVIDERS: ADMIT Family Medicine; ATTEND Family Medicine
PROC: B245ZZZ Ultrasonography of Left Heart (ICD-10-PCS; principal; 2018-01-04)
DX: G47.00 Insomnia, unspecified (principal); R25.8 Other abnormal involuntary movements; G25.71 Drug induced akathisia; J30.9 Allergic rhinitis, unspecified; J45.909 Unspecified asthma, uncomplicated; F32.9 Major depressive disorder, single episode, unspecified; K90.0 Celiac disease; M35.9 Systemic involvement of connective tissue, unspecified
CPT/HCPCS: 93005; 93306; 93971; 96374; 96375; 99285; G0378; J1650; J2060; J3360

== ENCOUNTER → 2019-01-01 | Outpatient (CLI) | payer OTHER | LOC: BMCIMAGING 13:49 | PROVIDERS: ATTEND Emergency Medicine | DX: J42 Unspecified chronic bronchitis (principal) ==